=== PATIENT | female | born 1995 | race Caucasian/White ===

== ENCOUNTER 2017-02-14 01:28 | Emergency (ER) | payer BC ==
[~2017-02-14] VITALS: Ht 167.6 cm; Wt 69.9 kg
--- NOTE | 2017-02-14 01:30 | NUR ---
Pt states that around 0000 hours, she began coughing and coughed up about 10ml of blood about 4 times. Also c/o slight 1/10 chest "tightness" from congestion, recently recovering from bronchitis. Pt denies SALCEDO, dizziness, SOB, n/v, no other complaints, no distress noted.
[2017-02-14] MEDS ORDERED: BC PILLS (01:41)
[2017-02-14 01:53] LABS: BASOPHILS # (AUTO) 0.1 K/uL (0.0-8.0); BASOPHILS % (AUTO) 0.9 % (0.0-2.0); EOSINOPHILS # (AUTO) 0.5 K/uL (0.0-0.7); EOSINOPHILS % (AUTO) 6.3 % (0.0-7.0); HEMATOCRIT 35.5 % (37-47); HEMOGLOBIN 11.4 G/DL (12.0-16.0); LYMPHOCYTES # (AUTO) 5.2 K/UL (0.8-4.8); LYMPHOCYTES % (AUTO) 64.6 % (20.5-51.5); MEAN CORPUSCULAR HEMOGLOBIN 26.7 UUG (27.0-31.0); MEAN CORPUSCULAR HGB CONC 32 g/dL (32.0-37.0); MONOCYTES # (AUTO) 0.6 K/UL (0.1-1.30); MONOCYTES % (AUTO) 7.2 % (0.0-11.0); NEUTROPHILS # (AUTO) 1.7 K/UL (1.8-8.9); PLATELET COUNT (AUTO) 321 K/UL (150-450); RED BLOOD CELL COUNT(AUTO) 4.28 MIL/UL (4.2-5.4); WHITE BLOOD COUNT (AUTO) 8.1 K/UL (4.0-11.2)
--- NOTE | 2017-02-14 02:25 | NUR ---
Gave pt d/c instructions, verbalized understanding.
== END 2017-02-14 02:32 | disposition home or self-care (01) ==
LOC: ER 01:37
DX: R04.2 Hemoptysis (principal)
CPT/HCPCS: 36415; 71010; 84703; 85025; 85610; A4663